=== PATIENT | female | born 1995 | race Caucasian/White ===

== ENCOUNTER → 2024-06-19 15:12 | Outpatient (REF) | payer BC, SELFPAY | LOC: PNTC 15:12 | PROVIDERS: ATTENDING PHYSICIAN Obstetrics & Gynecology | DX: O36.8190 Decreased fetal movements, unspecified trimester, not applicable or unspecified (principal) | CPT/HCPCS: 59025 ==

== ENCOUNTER 2024-08-02 10:12 | Inpatient (IN) | payer BC, SELFPAY ==
[2024-08-02 10:52] VITALS: BP 150/96; BMI 28.1
[2024-08-02] MEDS: TRANDATE 200 MG PO ×2 (12:20→19:57)
[2024-08-02 12:23] LABS: % Basophils 0.2 % (0-2); % Immature Granulocytes 0.7 % (0-0.5); % Lymphocytes 20.7 % (20.5-51.1); % Monocytes 5.6 % (1.7-9.3); % Neutrophils 70.8 % (42.2-75.2); Absolute Eosinophils 0.3 10^3/uL (0-0.7); Absolute Immature Granulocytes 0.1 10^3/uL (0-0.05); Absolute Lymphocytes 2.7 10^3/uL (1.2-3.4); Absolute Monocytes 0.7 10^3/uL (0.1-0.6); Absolute Neutrophils 9.3 10^3/uL (1.4-6.5); Hematocrit 41.5 % (37.0-47.0); Mean Corp Hgb Conc. 33.7 g/dL (33.0-37.0); Mean Corpuscular Hgb 28.4 pg (27.0-31.0); Mean Corpuscular Volume 84.2 fL (81.0-99.0); Mean Platelet Volume 11.5 fL (7.4-10.4); Nucleated Red Blood Cells % 0 %; Platelet Count 243 10^3/uL (130-400); Red Blood Cell Count 4.93 10^6/uL (4.20-5.40); Red Cell Dist. Width 13.1 % (11.5-14.5); White Blood Cell Count 13.1 10^3/uL (4.8-10.8)
[2024-08-02 12:38] LABS: ALT (SGPT) 14 U/L (0-35); AST (SGOT) 20 U/L (14-36); Albumin 3.8 g/dl (3.5-5.0); Alkaline Phosphatase 150 U/L (38-126); Blood Urea Nitrogen 9 mg/dl (7-17); Calcium 8.9 mg/dl (8.4-10.2); Carbon Dioxide 18 mmol/L (22-30); Chloride 106 mmol/L (98-107); Estimated Creatinine Clearance > 125 ml/min; Glucose 68 mg/dl (70-99); Potassium 4.5 mmol/L (3.5-5.1); Sodium 134 mmol/L (135-145); Total Bilirubin 0.5 mg/dl (0.2-1.3); Total Protein 6.3 g/dl (6.3-8.2); eGFR > 60.00
[2024-08-02 13:05] LABS: Protein/creatinine Ratio 0.5; Urine Protein 20 mg/dl
[2024-08-02] MEDS: CYTOTEC 25 MICROGRAM VAG (13:45)
[2024-08-02] MEDS: LR 1000 IV (13:48)
[2024-08-02] MEDS: CYTOTEC PO ×2 (19:03→22:21)
[2024-08-02] MEDS: TUMS CHEWABLE TABLET 400 MG PO (21:39)
[2024-08-02] MEDS: PEPCID 20 MG IV (23:12)
[2024-08-02] MEDS: NSS (PRESERVATIVE FREE) 8 ML IV (23:12)
[2024-08-03] MEDS: CYTOTEC PO ×3 (03:04→17:27)
[2024-08-03] MEDS: CYTOTEC 50 MICROGRAM PO (03:57)
[2024-08-03 05:55] LABS: Hematocrit 34.5 % (37.0-47.0); Hemoglobin 11.8 g/dL (12.0-16.0); Mean Corp Hgb Conc. 34.2 g/dL (33.0-37.0); Mean Corpuscular Hgb 28.8 pg (27.0-31.0); Mean Corpuscular Volume 84.1 fL (81.0-99.0); Mean Platelet Volume 11.4 fL (7.4-10.4); Platelet Count 183 10^3/uL (130-400); White Blood Cell Count 14.2 10^3/uL (4.8-10.8)
[2024-08-03 06:02] LABS: ALT (SGPT) 12 U/L (0-35); AST (SGOT) 16 U/L (14-36); Albumin 2.7 g/dl (3.5-5.0); Alkaline Phosphatase 123 U/L (38-126); Blood Urea Nitrogen 6 mg/dl (7-17); Calcium 8.1 mg/dl (8.4-10.2); Carbon Dioxide 23 mmol/L (22-30); Chloride 109 mmol/L (98-107); Estimated Creatinine Clearance > 125 ml/min; Glucose 83 mg/dl (70-99); Potassium 4.4 mmol/L (3.5-5.1); Sodium 137 mmol/L (135-145); Total Bilirubin 0.4 mg/dl (0.2-1.3); eGFR > 60.00
[2024-08-03] MEDS: TRANDATE 200 MG PO ×2 (08:36→19:41)
[2024-08-03] MEDS: ZOLOFT 50 MG PO (08:37)
[2024-08-03] MEDS: PITOCIN 30 UNITS/NSS 500 ML IV (10:40)
[2024-08-03] MEDS: LR 1000 IV (10:41)
[2024-08-03] MEDS: PEPCID 20 MG PO ×2 (12:33→23:36)
[2024-08-03] MEDS: PEPCID PO (19:44)
[2024-08-03] MEDS: SUBLIMAZE 100 MCG EPIDURAL (23:37)
[2024-08-03] MEDS: FENTANYL/BUPIVACAINE 100 EPIDURAL (23:38)
[2024-08-04] MEDS: LR 1000 IV ×2 (01:30→05:31)
[2024-08-04] MEDS: FENTANYL/BUPIVACAINE 100 EPIDURAL (07:56)
[2024-08-04] MEDS: ZOLOFT PO (08:00)
[2024-08-04] MEDS: ZOFRAN 4 MG IV (09:42)
[2024-08-04] MEDS: ZOLOFT 50 MG PO ×2 (10:09→10:23)
[2024-08-04] MEDS: TRANDATE PO ×2 (10:10)
[2024-08-04] MEDS: TRANDATE 200 MG PO ×2 (10:10→19:54)
[2024-08-04] MEDS: PEPCID 20 MG PO (19:54)
[2024-08-05 04:08] LABS: Hematocrit 33.2 % (37.0-47.0); Hemoglobin 11.1 g/dL (12.0-16.0)
[2024-08-05] MEDS: PEPCID 20 MG PO ×2 (07:56→20:05)
[2024-08-05] MEDS: TRANDATE 200 MG PO ×2 (07:56→20:05)
[2024-08-05] MEDS: ZOLOFT 50 MG PO (07:57)
[2024-08-05] MEDS: SENOKOT-S 1 TABLET PO (07:58)
[2024-08-06] MEDS: ZOLOFT 50 MG PO (07:52)
[2024-08-06] MEDS: TRANDATE 200 MG PO (07:53)
[2024-08-06] MEDS: SENOKOT-S 1 TABLET PO (07:53)
[2024-08-06] MEDS: PEPCID 20 MG PO (07:53)
[2024-08-08 12:03] LABS: Syphilis/T. pallidum Ab Reflex Negative (Negative)
== END 2024-08-06 10:54 | disposition home or self-care (01) | DRG 807 ==
LOC: LDRP 10:12
PROVIDERS: Obstetrics & Gynecology; ADMITTING PHYSICIAN Obstetrics & Gynecology
PROC: 4A1HXCZ Monitoring of Products of Conception, Cardiac Rate, External Approach (ICD-10-PCS; 2024-08-02)
PROC: 3E0P7VZ Introduction of Hormone into Female Reproductive, Via Natural or Artificial Opening (ICD-10-PCS; 2024-08-02)
PROC: 0UQMXZZ Repair Vulva, External Approach (ICD-10-PCS; 2024-08-03)
PROC: 3E033VJ Introduction of Other Hormone into Peripheral Vein, Percutaneous Approach (ICD-10-PCS; 2024-08-03)
PROC: 0HQ9XZZ Repair Perineum Skin, External Approach (ICD-10-PCS; 2024-08-03)
PROC: 10E0XZZ Delivery of Products of Conception, External Approach (ICD-10-PCS; 2024-08-03)
PROC: 10907ZC Drainage of Amniotic Fluid, Therapeutic from Products of Conception, Via Natural or Artificial Opening (ICD-10-PCS; 2024-08-03)
PROC: 0U7C7DJ Dilation of Cervix with Intraluminal Device, Temporary, Via Natural or Artificial Opening (ICD-10-PCS; 2024-08-03)
DX: O13.4 Gestational [pregnancy-induced] hypertension without significant proteinuria, complicating childbirth (principal); Z37.0 Single live birth; O99.52 Diseases of the respiratory system complicating childbirth; O99.344 Other mental disorders complicating childbirth; F32.A Depression, unspecified; J45.909 Unspecified asthma, uncomplicated; O70.0 First degree perineal laceration during delivery; Z3A.38 38 weeks gestation of pregnancy; Z79.899 Other long term (current) drug therapy
CPT/HCPCS: 88307; 80053; 82570; 84156; 85014; 85018; 85025; 85027; 86780; 86850; 86900; 86901